=== PATIENT | female | born 1960 | race Caucasian/White ===

== ENCOUNTER 2016-04-28 07:42 | Day surgery (SDC) | payer BC ==
[~2016-04-28 07:42] MED LIST: RINGERS SOLUTION,LACTATED 1,000 ML IV PRN
[2016-04-28 08:03] LABS: Hematocrit 40.7 % (37.0-47.0); Hemoglobin 13.2 gm/dL (12.5-16.0); Mean Cell Volume 89.3 fl (78-100); Mean Corpuscular Hemoglobin 28.9 pg (27-31); Mean Corpuscular Hgb Conc 32.4 g/dl (32-36); Mean Platelet Volume 11.4 fl (6.0-9.5); Neutrophil % 61.3 % (42-75.0); Platelet Count 203 K/mm3 (150-450); Red Blood Count 4.56 M/mm3 (4.2-5.4); Red Cell Distribution Width 13.2 % (11.5-14.0); White Blood Count 4.9 K/mm3 (4.0-10.5)
[2016-04-28] MEDS ORDERED: RINGERS SOLUTION,LACTATED 1,000 ML IV ONE (08:29)
[2016-04-28] MEDS ORDERED: oxyCODONE HCL/ACETAMINOPHEN 1 TAB TABLET PO PRN (09:38)
[2016-04-28] MEDS ORDERED: IBUPROFEN 600 MG TABLET PO PRN (09:39)
[2016-04-28 10:25] VITALS: BP 124/71
--- NOTE | 2016-04-28 11:05 | OR ---
Operative Report - Dictated Report Narrative: Operative Report 04/28/2016 Hysteroscopy Dilatation and Curettage Preoperative Diagnosis: Metrorrhagia Postoperative Diagnosis: Metrorrhagia Procedure: Hysteroscopy Dilatation and Curettage Surgeon: Malia Crawford M.D. Anesthesia: Vinny Sinclair CRNA, IV sedation Findings: Uterine sound was 11 cm. There is no evidence of endometrial polyp or submucosal fibroid clearly visualized. Fluids: 400 ml EBL: Minimal Drains: None Complications: None Condition: Stable Pathology: Endometrial curettings Procedure: The patient was taken to the operating room with IV fluids running. She was placed in the dorsal lithotomy position after anesthesia was induced. A bivalve speculum was placed in the vagina. The anterior lip of the cervix was grasped with a single-tooth tenaculum. Uterine sound was passed into the endometrial cavity with ease. Uterine sound was 11 cm. The cervix was dilated with Lucas dilators. The hysteroscope was introduced into the endometrial cavity. The cavity was distended with normal saline. Ostia were visualized bilaterally. The hysteroscope was removed. The cavity was sharply curetted without difficulty. The hysteroscope was once again introduced into the cavity. The cavity was completely curetted. The hysteroscope was removed. The single-tooth tenaculum was removed. Sites were hemostatic. The speculum was removed from the vagina. Sponge counts were correct 2. The patient tolerated the procedure well.
== END 2016-04-28 07:43 | disposition home or self-care (01) ==
LOC: AMB 07:42
PROVIDERS: ATTEND Obstetrics & Gynecology
PROC: 0UDB8ZX Extraction of Endometrium, Via Natural or Artificial Opening Endoscopic, Diagnostic (ICD-10-PCS; principal; 2016-04-28 09:00)
DX: N92.0 Excessive and frequent menstruation with regular cycle (principal); F41.9 Anxiety disorder, unspecified; Z87.891 Personal history of nicotine dependence; Z68.42 Body mass index [BMI] 45.0-49.9, adult